=== PATIENT | female | born 1995 | race African-American/Black ===

== ENCOUNTER 2017-06-03 19:25 | Emergency (ER) | payer OTHER ==
[~2017-06-03] VITALS: Ht 157.4 cm; Wt 90.7 kg
[~2017-06-03 19:25] MED LIST: AVPAK AZITHROM250 M1 PO; DEPO MEDRO40 MG/1 ML IM; DIPROSONE0.05% TP; FLAGYL250 MG PO; IBU-6600 MG PO; MACROBID100 M1 PO; MOTRIN800 MG PO; PERCOCET 325 MG1 TA2 PO; PRENATAL1 TA3 PO; VIBRAMYCIN100 MG PO; VISTARIL25 MG PO
== END 2017-06-03 20:02 | disposition home or self-care (01) ==
LOC: ED 19:25
DX: R21 Rash and other nonspecific skin eruption (principal); F17.200 Nicotine dependence, unspecified, uncomplicated

== ENCOUNTER → 2017-11-09 | Outpatient (CLI) | payer OTHER | END | disposition home or self-care (01) | LOC: MAMMO 13:30 | DX: Z12.31 Encounter for screening mammogram for malignant neoplasm of breast (principal); Z80.3 Family history of malignant neoplasm of breast ==

== ENCOUNTER 2018-06-02 22:52 | Emergency (ER) | payer OTHER ==
[~2018-06-02] VITALS: Ht 157.4 cm; Wt 81.6 kg
[2018-06-02 23:17] LABS: BILIRUBIN NEGATIVE (NEGATIVE); BLOOD 1+ (NEGATIVE); CLARITY CLEAR (CLEAR); COLOR YELLOW (YELLOW); GLUCOSE NEGATIVE (NEGATIVE); KETONE NEGATIVE (NEGATIVE); LEUKO ESTERASE 1+ (NEGATIVE); NITRITE NEGATIVE (NEGATIVE); SPECIFIC GRAVITY >= 1.030 (1.005-1.030); UROBILINOGEN 0.2 E.U./dl (0.2-1.0)
[2018-06-02 23:33] LABS: BACTERIA 2+; WBC 16-20 wbc/hpf (0-5)
[2018-06-02] MEDS ORDERED: FLUCONAZOLE100 MG PO (23:37)
[2018-06-06 17:06] LABS: GONOCOCCUS BY NAA Negative (Negative)
== END 2018-06-02 23:55 | disposition home or self-care (01) ==
LOC: ED 22:52
PROVIDERS: Emergency Medicine Emergency Medical Services
DX: B37.3 Candidiasis of vulva and vagina (principal)

== ENCOUNTER 2019-02-10 20:53 | Emergency (ER) | payer OTHER ==
[~2019-02-10] VITALS: Wt 81.6 kg
[~2019-02-10 20:53] MED LIST changes: +FLUCONAZOLE100 MG PO
[2019-02-10] MEDS ORDERED: AMOXICILLIN500 M2 PO (21:51)
== END 2019-02-10 22:10 | disposition home or self-care (01) ==
LOC: ED 20:53
DX: J02.9 Acute pharyngitis, unspecified (principal); H66.92 Otitis media, unspecified, left ear